=== PATIENT | female | born 1940 | race Caucasian/White ===

== ENCOUNTER 2019-04-04 08:10 | Emergency (ER) | payer MEDICARE, OTHER ==
[2019-04-04] MEDS ORDERED: NORMAL SALINE 1,000 ML IV.SOLN IV ONE (08:16)
[2019-04-11 13:35] LABS: APPEARANCE,URINE CLEAR (CLEAR); COLOR,URINE YELLOW (YELLOW); OCCULT BLOOD,URINE NEGATIVE (NEGATIVE); UROBILINOGEN URINE 0.2 Eu (0.2-1.0)
[2019-04-11 13:35] LABS: BASOPHILS % 0.3 % (0.0-1.5); NEUTROPHILS # 4.3 # k/uL (1.4-7.7)
[2019-04-11 13:36] LABS: eGFR (Non-African) 31
--- NOTE | 2019-04-29 12:52 | Diagnostic Imaging Report ---
STEPHANIE CARPIO [facility] [id number] [address] Report Submission Date: Apr 04, 2019 9:54:20 AM CDT Patient Study Name: ERIC ARMSTRONG Date: Apr 04, 2019 9:16:27 AM CDT Modality Type: DX Gender: F Description: CHEST 1VIEW : 40 Institution: [facility] Physician: STEPHANIE CARPIO CHEST 1 VIEWS CLINICAL INDICATION: ORDER STATES ELEVATED BNP (Hx) / Note time : 04/04/2019 9:39:12 AM User : Edmundo Farley ORDER STATES ELEVATED BNP (DICOM Hx) (DICOM Hx) FINDINGS: One view of the chest were obtained. The lungs are well expanded. No confluent infiltrate, consolidation, or effusion is present. The heart and mediastinal silhouettes are normal. IMPRESSION: No acute cardiopulmonary disease. Electronically signed on Apr 04, 2019 9:54:20 AM CDT by: Yeyo VIDAL
== END 2019-04-04 10:20 | disposition home or self-care (01) ==
LOC: ED 08:10
DX: R11.2 Nausea with vomiting, unspecified (principal)
CPT/HCPCS: 80053; 81002; 82553; 83880; 84484; 85025; 93005; 99283; 99284; J7030